=== PATIENT | male | born 1975 | race African-American/Black ===

== ENCOUNTER 2016-04-22 16:47 | Emergency (ER) | payer OTHER ==
--- NOTE | 2016-04-22 17:13 | ER Document Report ---
ED Medical Screen (RME) - General Chief Complaint: High Blood Sugar Stated Complaint: THIRSTY,BODY CRAMPING,FREQUENT URINATION Time seen by provider: 17:11 Mode of Arrival: Ambulatory Information source: Patient Notes: 40-year-old male presents to ED for increased thirst urination and body aches for the last 4 days. He states he was sent over here from the [facility] because his blood sugar was 437 at his doctor's appointment. States he did not previously have a diagnosis of diabetes. History of high blood pressure not all medicines for his blood pressure. I have greeted and performed a rapid initial assessment of this patient. A comprehensive ED assessment and evaluation of the patient, analysis of test results and completion of medical decision making process will be conducted by an additional ED providers. TRAVEL OUTSIDE OF THE [place] IN LAST 30 DAYS: No - Related Data Allergies/Adverse Reactions: No Known Allergies Allergy (Unverified 06/07/14 03:07) Physical Exam - Vital signs Vitals: Temp Pulse Resp BP Pulse Ox 97.6 F 107 H 18 153/101 H 93 04/22/16 17:05 04/22/16 17:05 04/22/16 17:05 04/22/16 17:05 04/22/16 17:05 Course - Vital Signs Vital signs: Temp Pulse Resp BP Pulse Ox 97.6 F 107 H 18 153/101 H 93 04/22/16 17:05 04/22/16 17:05 04/22/16 17:05 04/22/16 17:05 04/22/16 17:05
[2016-04-22 17:38] LABS: ABSOLUTE LYMPHOCYTES (AUTO) 2.9 10^3/uL (0.5-4.7); ABSOLUTE MONOCYTES (AUTO) 0.6 10^3/uL (0.1-1.4); ABSOLUTE NEUT (AUTO) 3.5 10^3/uL (1.7-8.2); BASOPHILS % (AUTO) 0.5 % (0-2); HEMATOCRIT 51.8 % (37.9-51.0); HEMOGLOBIN 17.6 g/dL (13.5-17.0); LYMPHOCYTES % (AUTO) 40.9 % (13-45); MEAN CORPUSCULAR HEMOGLOBIN 29.8 pg (27.0-33.4); MEAN CORPUSCULAR HGB CONC 33.9 g/dL (32.0-36.0); MEAN CORPUSCULAR VOLUME 88 fl (80-97); MONOCYTES % (AUTO) 8.1 % (3-13); RED CELL DISTRIBUTION WIDTH 13.6 % (11.5-14.0); SEGMENTED NEUTROPHILS % (AUTO) 50.5 % (42-78)
[2016-04-22 17:52] LABS: ALANINE AMINOTRANSFERASE 56 U/L (21-72); ALBUMIN 4.5 g/dL (3.5-5.0); ALKALINE PHOSPHATASE 102 U/L (38-126); ANION GAP 14 (5-19); ASPARTATE AMINO TRANSFERASE 35 U/L (17-59); BILIRUBIN,TOTAL 0.8 mg/dL (0.2-1.3); BLOOD UREA NITROGEN 13 mg/dL (7-20); CALCIUM 10.5 mg/dL (8.4-10.2); CARBON DIOXIDE 28 mmol/L (22-30); CHLORIDE 95 mmol/L (98-107); CREATININE RESULT 1.27 mg/dL (0.52-1.25); LIPASE 244.6 U/L (23-300); POTASSIUM 4.3 mmol/L (3.6-5.0); SODIUM 137.4 mmol/L (137-145); TOTAL PROTEIN 7.6 g/dL (6.3-8.2)
[2016-04-22 17:54] LABS: APPEARANCE,URINE CLEAR; BILIRUBIN,URINE NEGATIVE (NEGATIVE); GLUCOSE, URINE >=500 mg/dL (NEGATIVE); KETONES,URINE NEGATIVE (NEGATIVE); LEUKOCYTE ESTERASE,URINE NEGATIVE (NEGATIVE); NITRITE,URINE NEGATIVE (NEGATIVE); PROTEIN,URINE NEGATIVE (NEGATIVE); URINE SPECIFIC GRAVITY 1.038; UROBILINOGEN,URINE NEGATIVE mg/dL (<2.0)
[2016-04-22 18:06] LABS: GLUCOSE 494 mg/dL (75-110)
[2016-04-22] MEDS ORDERED: NORMAL SALINE 1000 ML 1,000 ML IV ONE (18:53)
--- NOTE | 2016-04-22 19:10 | ER Document Report ---
ED Blood Sugar Problem - General Mode of Arrival: Ambulatory Information source: Patient TRAVEL OUTSIDE OF THE [place] IN LAST 30 DAYS: No - HPI Patient complains to provider of: Hyperglycemia Onset: Other - 3 days ago Associated symptoms: Other - see above <ANGEL RONQUILLO - Last Filed: 04/22/16 21:21> <ELISEISABEL TIMA - Last Filed: 04/23/16 03:14> - General Chief Complaint: High Blood Sugar Stated Complaint: THIRSTY,BODY CRAMPING,FREQUENT URINATION Notes: 40 year old male with history of pre-diabetes presents to the ED complaining of increased urinary frequency and cramping to the bilateral upper and lower extremities that started 3 days ago. Patient states that his urination is becoming more frequent and claims that he is urinating every 2-3 minutes. Patient denies any burning with urination. [facility] and was advised to come to the ED after having a blood sugar of 437. (ANGEL RONQUILLO) - Related Data Allergies/Adverse Reactions: No Known Allergies Allergy (Verified 04/22/16 17:12) Past Medical History - General Information source: Patient - Social History Smoking Status: Former Smoker Chew tobacco use (# tins/day): No Frequency of alcohol use: None Drug Abuse: None Family History: Hypertension Patient has suicidal ideation: No Patient has homicidal ideation: No Endocrine Medical History: Reports: Other - Pre-diabetes <ANGEL RONQUILLO - Last Filed: 04/22/16 21:21> Review of Systems - Review of Systems Constitutional: No symptoms reported EENT: No symptoms reported Cardiovascular: No symptoms reported Respiratory: No symptoms reported Gastrointestinal: No symptoms reported Genitourinary: See HPI, Frequency. denies: Burning Male Genitourinary: No symptoms reported Musculoskeletal: See HPI, Other - cramping to the bilateral upper and lower extremities Skin: No symptoms reported Hematologic/Lymphatic: No symptoms reported Neurological/Psychological: No symptoms reported -: Yes All other systems reviewed and negative <ANGEL RONQUILLO - Last Filed: 04/22/16 21:21> Physical Exam - General General appearance: Alert In distress: None - HEENT Head: Normocephalic, Atraumatic Eyes: Normal Extraocular movements intact: Yes Pupils: PERRL Mucous membranes: Dry - Respiratory Respiratory status: No respiratory distress Breath sounds: Normal - Cardiovascular Rhythm: Regular Heart sounds: Normal auscultation - Abdominal Inspection: Obese. No: Normal - Back Back: Normal - Extremities General upper extremity: Normal inspection, Normal ROM General lower extremity: Normal inspection, Normal ROM - Neurological Neuro grossly intact: Yes Cognition: Normal Orientation: AAOx4 [place] Coma Scale Eye Opening: Spontaneous [place] Coma Scale Verbal: Oriented [place] Coma Scale Motor: Obeys Commands [place] Coma Scale Total: 15 Speech: Normal - Psychological Associated symptoms: Normal affect, Normal mood - Skin Skin Temperature: Warm Skin Moisture: Dry Skin Color: Normal <ANGEL RONQUILLO - Last Filed: 04/22/16 21:21> Course - Laboratory Result Diagrams: 04/22/16 17:20 04/22/16 17:20 <ANGEL RONQUILLO - Last Filed: 04/22/16 21:21> - Laboratory Result Diagrams: 04/22/16 17:20 04/22/16 17:20 <ISABEL OLIVARES - Last Filed: 04/23/16 03:14> - Re-evaluation Re-evalutation: 04/22/16 Patient is a 40-year-old male who has had recent increase in thirst and urination. Patient had an outpatient blood sugar over 400. Patient has a follow-up appointment in the morning with the [facility]. He'll be started on metformin. He has been hydrated. He's been counseled regarding carbohydrate counting and management of diabetes. Return if any worsening or concerning symptoms. No evidence for acidosis. Stable for discharge. (ISABEL OLIVARES) - Vital Signs Vital signs: Temp Pulse Resp BP Pulse Ox 97.4 F 84 16 142/86 H 97 04/22/16 20:45 04/22/16 20:45 04/22/16 20:45 04/22/16 20:45 04/22/16 20:45 (ANGEL RONQUILLO) (ISABEL OLIVARES) - Laboratory Laboratory results interpreted by mt: 04/22/16 04/22/16 04/22/16 17:20 17:20 17:20 RBC 5.90 H Hgb 17.6 H Hct 51.8 H Chloride 95 L Creatinine 1.27 H Glucose 494 H* POC Glucose Calcium 10.5 H Urine Glucose (UA) >=500 H 04/22/16 04/22/16 17:25 19:32 RBC Hgb Hct Chloride Creatinine Glucose POC Glucose 482 H* 361 H Calcium Urine Glucose (UA) (ANGEL RONQUILLO) (ISABEL OLIVARES) Discharge <ANGEL RONQUILLO - Last Filed: 04/22/16 21:21> <ISABEL OLIVARES - Last Filed: 04/23/16 03:14> - Discharge Clinical Impression: Hyperglycemia Type 2 diabetes mellitus Qualifiers: Diabetes mellitus complication status: with hyperglycemia Diabetes mellitus jail insulin use: without truck terminal manager use Qualified Code(s): E11.65 - Type 2 diabetes mellitus with hyperglycemia Condition: Stable Disposition: HOME, SELF-CARE Instructions: Diabetes ([facility]), Control of Diabetes During Illness ([facility]), Hyperglycemia ([facility]) Additional Instructions: Please follow-up with your doctor tomorrow as scheduled. Prescriptions: Metformin HCl 500 mg PO BID #60 tablet Forms: Return to Work Scribe Attestation: 04/23/16 03:13 I personally performed the services described in the documentation, reviewed and edited the documentation which was dictated to the scribe in my presence, and it accurately records my words and actions. (ISABEL OLIVARES) Scribe Documentation - Scribe Written by Zechariah:: Zechariah Oliveira, 04/22/2016, 19:57 acting as scribe for :: Elise <ANGEL RONQUILLO - Last Filed: 04/22/16 21:21>
[2016-04-22] MEDS ORDERED: INSULIN REG, HUMAN 100 UNIT/ML 3 ML VIAL (PYX) IV ONE (19:43)
[2016-04-22] MEDS ORDERED: METFORMIN HCL 500 MG TABLET PO ONE (20:24)
[2016-04-22 20:51] VITALS: BP 142/86
== END 2016-04-22 20:52 | disposition home or self-care (01) ==
LOC: ER 16:47
DX: E11.65 Type 2 diabetes mellitus with hyperglycemia (principal); R73.9 Hyperglycemia, unspecified; R63.1 Polydipsia; R52 Pain, unspecified; R35.0 Frequency of micturition; Z87.891 Personal history of nicotine dependence
CPT/HCPCS: 99283; 96360; 36415; 82962; 83690; 85025; 80053; 81001; J1815; J7030

== ENCOUNTER 2016-09-02 19:32 | Emergency (ER) | payer OTHER ==
[2016-09-02 20:39] LABS: APPEARANCE,URINE CLEAR; BILIRUBIN,URINE NEGATIVE (NEGATIVE); GLUCOSE, URINE >=500 mg/dL (NEGATIVE); KETONES,URINE TRACE mg/dL (NEGATIVE); LEUKOCYTE ESTERASE,URINE NEGATIVE (NEGATIVE); NITRITE,URINE NEGATIVE (NEGATIVE); PROTEIN,URINE NEGATIVE (NEGATIVE); URINE SPECIFIC GRAVITY 1.028; UROBILINOGEN,URINE NEGATIVE mg/dL (<2.0)
[2016-09-02 21:54] LABS: ABSOLUTE BASOPHILS # (AUTO) 0.1 10^3/uL (0.0-0.2); ABSOLUTE LYMPHOCYTES (AUTO) 3.2 10^3/uL (0.5-4.7); ABSOLUTE MONOCYTES (AUTO) 0.5 10^3/uL (0.1-1.4); BASOPHILS % (AUTO) 1.3 % (0-2); HEMATOCRIT 52.6 % (37.9-51.0); HEMOGLOBIN 17.4 g/dL (13.5-17.0); HGB HCT DIFFERENCE -0.4; LYMPHOCYTES % (AUTO) 47.2 % (13-45); MEAN CORPUSCULAR HEMOGLOBIN 29.2 pg (27.0-33.4); MEAN CORPUSCULAR HGB CONC 33.2 g/dL (32.0-36.0); MEAN CORPUSCULAR VOLUME 88 fl (80-97); MONOCYTES % (AUTO) 7.5 % (3-13); RED BLOOD COUNT 5.97 10^6/uL (4.35-5.55); RED CELL DISTRIBUTION WIDTH 14.7 % (11.5-14.0); WHITE BLOOD COUNT 6.9 10^3/uL (4.0-10.5)
[2016-09-02] MEDS ORDERED: NORMAL SALINE 1000 ML 2,000 ML IV ONE (23:49)
--- NOTE | 2016-09-03 00:01 | ER Document Report ---
ED GI/ - General Chief Complaint: Abdominal Pain Stated Complaint: ABDOMINAL PAIN Time Seen by Provider: 09/02/16 23:49 Mode of Arrival: Ambulatory Information source: Patient Notes: 40-year-old male complaining of bulging from his umbilicus and abdominal pain. No nausea vomiting or diarrhea. No fever or chills. TRAVEL OUTSIDE OF THE [place] IN LAST 30 DAYS: No - Related Data Allergies/Adverse Reactions: No Known Allergies Allergy (Verified 04/22/16 17:12) Past Medical History - General Information source: Patient - Social History Smoking Status: Never Smoker Frequency of alcohol use: None Drug Abuse: None Lives with: Family Family History: Hypertension Patient has suicidal ideation: No Patient has homicidal ideation: No Endocrine Medical History: Reports: Hx Diabetes Mellitus Type 2 Renal/ Medical History: Denies: Hx Peritoneal Dialysis Surgical Hx: Negative Review of Systems - Review of Systems Constitutional: No symptoms reported EENT: No symptoms reported Cardiovascular: No symptoms reported Respiratory: No symptoms reported Gastrointestinal: See HPI Genitourinary: No symptoms reported Male Genitourinary: No symptoms reported Musculoskeletal: No symptoms reported Skin: No symptoms reported Hematologic/Lymphatic: No symptoms reported Neurological/Psychological: No symptoms reported Physical Exam - Vital signs Vitals: Temp Pulse Resp BP Pulse Ox 98.1 F 92 16 135/87 H 97 09/02/16 20:05 09/02/16 20:05 09/02/16 20:05 09/02/16 20:05 09/02/16 20:05 Interpretation: Normal - General General appearance: Appears well, Alert - HEENT Head: Normocephalic, Atraumatic Eyes: Normal Pupils: PERRL Neck: Supple - Respiratory Respiratory status: No respiratory distress Chest status: Nontender Breath sounds: Normal Chest palpation: Normal - Cardiovascular Rhythm: Regular Heart sounds: Normal auscultation Murmur: No - Abdominal Inspection: Normal Distension: No distension Bowel sounds: Normal Tenderness: Tender - Superior right umbilicus hernia was reduced with gentle pressure. Nontender after reduction Organomegaly: No organomegaly - Back Back: Normal, Nontender - Extremities General upper extremity: Normal inspection, Nontender, Normal color, Normal ROM , Normal temperature General lower extremity: Normal inspection, Nontender, Normal color, Normal ROM , Normal temperature, Normal weight bearing. No: Ranjith's sign - Neurological Neuro grossly intact: Yes Cognition: Normal Orientation: AAOx4 [place] Coma Scale Eye Opening: Spontaneous [place] Coma Scale Verbal: Oriented [place] Coma Scale Motor: Obeys Commands [place] Coma Scale Total: 15 Speech: Normal Motor strength normal: LUE, RUE, LLE, RLE Sensory: Normal - Psychological Associated symptoms: Normal affect, Normal mood - Skin Skin Temperature: Warm Skin Moisture: Dry Skin Color: Normal Skin irregularity: negative: Rash Course - Vital Signs Vital signs: Temp Pulse Resp BP Pulse Ox 98.4 F 81 16 133/80 H 98 09/03/16 00:37 09/03/16 00:37 09/03/16 00:37 09/03/16 00:37 09/03/16 00:37 - Laboratory Result Diagrams: 09/02/16 21:40 09/02/16 21:40 Laboratory results interpreted by me: 09/02/16 09/02/16 09/03/16 20:02 21:40 00:11 RBC 5.97 H Hgb 17.4 H Hct 52.6 H RDW 14.7 H Lymphocytes % 47.2 H POC Glucose 140 H Urine Glucose (UA) >=500 H Urine Ketones TRACE H Urine Ascorbic Acid 40 H Discharge - Discharge Clinical Impression: reducible umbilical hernia Condition: Good Disposition: HOME, SELF-CARE Instructions: Umbilical Hernia ([facility]) Additional Instructions: génesis appt with the general surgeon for unbllical hernia repair return to ER if you are unble to push it back in as instructed no heavy lifting or bearing down which causes the hernia to protrude more. Referrals: DINORA STEWART MD [ACTIVE STAFF] - Follow up tomorrow
[2016-09-03 00:40] VITALS: BP 133/80
== END 2016-09-03 00:37 | disposition home or self-care (01) ==
LOC: ER 19:32
DX: K42.9 Umbilical hernia without obstruction or gangrene (principal); R10.9 Unspecified abdominal pain
CPT/HCPCS: 36415; 81001; 82962; 85025; 99284

== ENCOUNTER 2019-10-22 01:48 | Emergency (ER) | payer OTHER ==
[2019-10-22] MEDS ORDERED: OXYCODONE-ACETAMINOPHEN 5-325 MG TABLET PO ONE (03:05)
[2019-10-22] MEDS ORDERED: ONDANSETRON 4 MG TAB.RAPDIS PO ONE (03:05)
--- NOTE | 2019-10-22 03:08 | ER Document Report ---
ED Medical Screen (RME) - General Chief Complaint: Abscess Stated Complaint: ABCESS ON LEFT GROIN AREA Time Seen by Provider: 10/22/19 03:04 Notes: 44-year-old male chief complaint of swelling to the left inner thigh that now extends to the groin into the scrotum on the left side. He states initially the area started getting tender and swollen, he thinks it was an ingrown hair, he does shave the area. This started about 4 days ago, he was seen the next day after he tried to poke this with a needle and had a small amount of drainage. He was seen by primary care and placed on Bactrim which he has been taking. He denies fever. He does have type 2 diabetes. TRAVEL OUTSIDE OF THE [place] IN LAST 30 DAYS: No - Related Data Allergies/Adverse Reactions: No Known Allergies Allergy (Verified 04/22/16 17:12) Home Medications: bactrim ds bid x3 doses. lantus insulin 40 units Past Medical History Endocrine Medical History: Reports: Hx Diabetes Mellitus Type 2 Renal/ Medical History: Denies: Hx Peritoneal Dialysis Physical Exam - Vital signs Vitals: Temp Pulse Resp BP Pulse Ox 97.9 F 100 16 143/90 H 99 10/22/19 02:17 10/22/19 02:10/22/19 02:10/22/19 02:17 10/22/19 02:17 - Genitourinary Scrotum: Other - Erythema and tenderness with some swelling extending from the left medial thigh to the inguinal area and also slightly to the scrotum area. No obvious head or fluctuant area is noted however. Exam is limited by triage location. Talisha ASCENCIO present in room during exam. Course - Re-evaluation Re-evalutation: I have greeted and performed a rapid initial assessment of this patient. A comprehensive ED assessment and evaluation of the patient, analysis of test results and completion of the medical decision making process will be conducted by additional ED providers. - Vital Signs Vital signs: Temp Pulse Resp BP Pulse Ox 97.9 F 100 16 143/90 H 99 10/22/19 02:17 10/22/19 02:17 10/22/19 02:17 10/22/19 02:17 10/22/19 02:17
[2019-10-22] MEDS ORDERED: NORMAL SALINE 1000 ML 1,000 ML IV ONE (04:16)
[2019-10-22] MEDS ORDERED: HYDROMORPHONE HCL INJ/PF 2 MG/ML AMPULE IV ONE (04:16)
[2019-10-22 04:34] LABS: ABSOLUTE LYMPHOCYTES (AUTO) 1.8 10^3/uL (0.5-4.7); BASOPHILS % (AUTO) 0.2 % (0-2); HEMATOCRIT 47.8 % (37.9-51.0); HEMOGLOBIN 16.5 g/dL (13.5-17.0); LYMPHOCYTES % (AUTO) 17.8 % (13-45); MEAN CORPUSCULAR HEMOGLOBIN 29.6 pg (27.0-33.4); MEAN CORPUSCULAR HGB CONC 34.5 g/dL (32.0-36.0); MEAN CORPUSCULAR VOLUME 86 fl (80-97); MONOCYTES % (AUTO) 10.2 % (3-13); PLATELET COUNT 144 10^3/uL (150-450); RED BLOOD COUNT 5.57 10^6/uL (4.35-5.55); RED CELL DISTRIBUTION WIDTH 14.5 % (11.5-14.0); SEGMENTED NEUTROPHILS % (AUTO) 71.8 % (42-78); TOTAL CELLS COUNTED % (AUTO) 100 %; WHITE BLOOD COUNT 9.8 10^3/uL (4.0-10.5)
--- NOTE | 2019-10-22 04:36 | RADIOLOGY REPORT (SQ) ---
EXAM DESCRIPTION: US SCROTUM COMPLETED DATE/TME: 10/22/2019 03:04 CLINICAL HISTORY: 44 years, Male, left inner thigh and scrotal swelling COMPARISON: 06/06/2014 ultrasound TECHNIQUE: Transverse and longitudinal sonographic images of the testes LIMITATIONS: None. FINDINGS: The right testicle measures 4.4 x 2.1 x 3.2 cm, the left 4.3 x 2.2 x 3.5 cm. Negative for intratesticular mass. Doppler images show normal flow to each testicle. The epididymides are unremarkable. There is diffuse skin thickening of the scrotum. No abnormal fluid collections. IMPRESSION: No sonographic evidence for torsion. Diffuse scrotal skin thickening copyright 2010 [employer]- All Rights Reserved
[2019-10-22] MEDS ORDERED: CLINDAMYCIN 900 MG/D5W RTU 900 MG/50 ML RTUPB IV ONE (04:39)
[2019-10-22 04:55] LABS: ANION GAP 7 (5-19); BLOOD UREA NITROGEN 11 mg/dL (7-20); CALCIUM 8.9 mg/dL (8.4-10.2); CARBON DIOXIDE 25 mmol/L (22-30); CHLORIDE 100 mmol/L (98-107); POTASSIUM 3.9 mmol/L (3.6-5.0)
[2019-10-22 05:08] LABS: GLUCOSE 486 mg/dL (75-110)
[2019-10-22] MEDS ORDERED: INSULIN REG, HUMAN 100 UNIT/ML 3 ML VIAL (PYX) IV ONE (05:35)
--- NOTE | 2019-10-22 05:54 | ER Document Report ---
Entered by JEF BLANK SCRIBE 10/22/19 0402 Acting as scribe for:KAIT PISANO IV, MD ED General - General Chief Complaint: Abscess Stated Complaint: ABCESS ON LEFT GROIN AREA Time Seen by Provider: 10/22/19 03:04 Primary Care Provider: RAMOS,MARKY [Primary Care Provider] - Follow up as needed Mode of Arrival: Wheelchair Information source: Patient Notes: This 44 year old male patient presents to the ED today with complaints of pain and an area of swelling to his left inner thigh that started about x4 days ago. Patient states that he thought the area was due to an ingrown hair, so he poked the area with a needle and noted some drainage. He saw his PCP the day after onset and was placed on Bactrim which he has been taking. He states that now the swelling has extended to his groin and scrotum on the left side. Denies any fevers. TRAVEL OUTSIDE OF THE [place] IN LAST 30 DAYS: No - Related Data Allergies/Adverse Reactions: No Known Allergies Allergy (Verified 04/22/16 17:12) Home Medications: bactrim ds bid x3 doses. lantus insulin 40 units Past Medical History - General Information source: Patient - Social History Smoking Status: Current Every Day Smoker Cigarette use (# per day): Yes Chew tobacco use (# tins/day): No Smoking Education Provided: No Family History: Reviewed & Not Pertinent, Hypertension Patient has suicidal ideation: No Patient has homicidal ideation: No Endocrine Medical History: Reports: Hx Diabetes Mellitus Type 2 Review of Systems - Review of Systems Constitutional: See HPI. denies: Fever EENT: No symptoms reported Cardiovascular: No symptoms reported Respiratory: No symptoms reported Gastrointestinal: No symptoms reported Genitourinary: No symptoms reported Male Genitourinary: See HPI Musculoskeletal: No symptoms reported Skin: See HPI Hematologic/Lymphatic: No symptoms reported Neurological/Psychological: No symptoms reported -: Yes All other systems reviewed and negative Physical Exam - Vital signs Vitals: Temp Pulse Resp BP Pulse Ox 97.9 F 100 16 143/90 H 99 10/22/19 02:17 10/22/19 02:17 10/22/19 02:17 10/22/19 02:17 10/22/19 02:17 - General General appearance: Alert In distress: None - HEENT Head: Normocephalic, Atraumatic Eyes: Normal Pupils: PERRL - Respiratory Respiratory status: No respiratory distress Chest status: Nontender Breath sounds: Normal Chest palpation: Normal - Cardiovascular Rhythm: Regular Heart sounds: Normal auscultation Murmur: No Friction rub: No Gallop: None auscultated - Abdominal Inspection: Normal Distension: No distension Bowel sounds: Normal Tenderness: Nontender - Abdomen soft Organomegaly: No organomegaly - Genitourinary Scrotum: Swelling - Significant soft tissue swelling, edema, and erythema noted to left scrotum, Other - Pinpoint area of purulent drainage noted in the center of swelling of the left scrotum Notes: Scada Engineer present - Extremities General upper extremity: Normal inspection - Neurological Neuro grossly intact: Yes Orientation: AAOx4 [place] Coma Scale Eye Opening: Spontaneous [place] Coma Scale Verbal: Oriented [place] Coma Scale Motor: Obeys Commands [place] Coma Scale Total: 15 - Psychological Associated symptoms: Normal affect, Normal mood - Skin Skin irregularity: Tender indurated area - with erythema noted to proximal and medial surface of left thigh Course - Re-evaluation Re-evalutation: 10/22/19 05:57 Results of ED MSE discussed with patient. All questions were answered prior to discharge. Emergency signs and symptoms, reasons to return to the emergency department discussed with patient. - Vital Signs Vital signs: Temp Pulse Resp BP Pulse Ox 97.9 F 100 16 143/90 H 99 10/22/19 02:17 10/22/19 02:17 10/22/19 02:17 10/22/19 02:17 10/22/19 02:17 - Laboratory Result Diagrams: 10/22/19 04:16 10/22/19 04:16 Laboratory results interpreted by me: 10/22/19 10/22/19 04:16 04:16 RBC 5.57 H RDW 14.5 H Plt Count 144 L Sodium 132.1 L Glucose 486 H* - Diagnostic Test Radiology reviewed: Reports reviewed Discharge - Discharge Clinical Impression: Cellulitis Qualifiers: Site of cellulitis: unspecified site Qualified Code(s): L03.90 - Cellulitis, unspecified Condition: Stable Disposition: HOME, SELF-CARE Additional Instructions: Return to the Emergency Department without delay if any worse. HOME CARE INSTRUCTIONS & INFORMATION: Thank you for choosing us for your medical needs. We hope you're satisfied with the care you received. After you leave, you must properly care for your problem and, at the same time, observe its progress. Any condition can change. Some illnesses can change rapidly over hours or days. If your condition worsens, return to the Emergency Department or see your physician promptly. ABOUT YOUR X-RAYS AND EKG'S: If you had an EKG or X-rays taken, they have been read by the Emergency Physician. The X-rays and EKG's will also be read by a Radiologist or Semi Automatic Sewing Machine Operator within 24 hours. If discrepancies are noted, you will be notified by telephone. Please be certain the ED has a correct telephone number & address where you can be reached. Also, realize that some fractures or abnormalities do not show up on initial X-rays. If your symptoms continue, see your physician. ABOUT YOUR LABORATORY TEST: If you had laboratory tests, the results have been reviewed by the Emergency Physician. Some test results (for example cultures) may not be available for several days. You will be contacted if any test result shows you need additional treatment. Please be certain the ED has a correct [employer] number and address where you can be reached. ABOUT YOUR MEDICATIONS: You will receive instructions on how to take your medicine on the prescription label you receive. Additional information may be provided by the Pharmacy. If you have questions afterwards, call the ED for clarification or further instructions. Some prescribed medications may cause drowsiness. Do not perform tasks such as driving a car or operating machinery without consulting your Pharmacist. If you feel you need a refill of pain medication, your condition will need re-evaluation. Please do not call for a refill of any medication. ABOUT YOUR SIGNATURE: Signature of this document acknowledges to followin. Understanding that you received emergency treatment and that you may be released before al medical problems are known or treated. Please be certain the ED has a correct phone number & address where you can be reached. 2. Acknowledgement that you will arrange for follow-up care as recommended. 3. Authorization for the Emergency Physician to provide information to your follow-up Physician in order to maximize your care. AT ANY TIME, IF YOUR SYMPTOMS CHANGE SIGNIFICANTLY OR WORSEN OR YOU DEVELOP NEW SYMPTOMS, RETURN TO THE EMERGENCY DEPARTMENT IMMEDIATELY FOR RE-EVALUATION. OUR GOAL IS TO PROVIDE EXCELLENT MEDICAL CARE! WE HOPE THAT WE HAVE MET YOUR EXPECTATIONS DURING YOUR EMERGENCY DEPARTMENT VISIT AND THAT YOU FEEL YOU HAVE RECEIVED EXCELLENT CARE! Cellulitis You have an infection of your skin and underlying soft tissues called cellulitis. This is due to bacteria, which can enter through any break in the skin, or even through an irritated hair follicle. Untreated, cellulitis will usually worsen. Antibiotics are required. Usually, warm packs or warm soaks, and elevation of the infected area are recommended. You should start getting better within 24 to 36 hours. Most infections respond quickly to the right medication. Follow-up care is important, however, to check for abscess (boil) formation, unsuspected foreign body, or resistant infection. If you develop fever, chills, or if the area of infection is becoming rapidly more swollen or painful, call the doctor at once. Prescriptions: Oxycodone HCl/Acetaminophen [Percocet 5-325 mg Tablet] 1 tab PO Q6HP PRN #15 tablet PRN Reason: pain Clindamycin HCl [Cleocin 150 mg Capsule] 450 mg PO TID 10 Days #90 capsule Clindamycin HCl [Cleocin 150 mg Capsule] 450 mg PO TID 10 Days #90 [facility]errals: [facility] [Primary [facility]] - Follow up as needed I personally performed the services described in the documentation, reviewed and edited the documentation which was dictated to the scribe in my presence, and it accurately records my words and actions.
[2019-10-22] MEDS ORDERED: HYDROCODONE/ACETAMINOPHEN 5-325 MG (6 TAB/ER DISP) PO PRN (05:56)
[2019-10-22 06:15] VITALS: BP 123/76
== END 2019-10-22 06:16 | disposition home or self-care (01) ==
LOC: ER 01:48
DX: L02.214 Cutaneous abscess of groin (principal); L03.90 Cellulitis, unspecified; F17.210 Nicotine dependence, cigarettes, uncomplicated; E11.9 Type 2 diabetes mellitus without complications
CPT/HCPCS: 99283; 96361; 96375; 96365; 36415; 87040; 87070; 87205; 85025; 87075; 80048; 76870; 93976; S0119; J3490; J1170; J1815; J7030; 87077

== ENCOUNTER 2019-10-23 23:49 | Emergency (ER) | payer OTHER ==
[2019-10-24] MEDS ORDERED: NORMAL SALINE 1000 ML 1,000 ML IV ONE ×2 (00:32→01:49)
--- NOTE | 2019-10-24 00:32 | ER Document Report ---
ED Medical Screen (RME) - General Chief Complaint: Testicular Swelling Stated Complaint: ABSCESS IN GROIN/TESTICULAR SWELLING Time Seen by Provider: 10/24/19 00:25 Primary Care Provider: MARKY BEASLEY [Primary Care Provider] - Follow up as needed Notes: HPI: 44-year-old type II diabetic male presenting for worsening left groin swelling. Patient states for 5 days ago he developed tenderness and swelling in the left groin region adjacent to the scrotum went to [facility] and was placed on Bactrim. Took the antibiotics for 2 days did not get any better came into the emergency department 2 days ago for further evaluation. States he had an ultrasound that did not show any significant issues, was placed on clindamycin but did not have the area in the left groin drained. States he has been trying to drain it at home without success. Patient reports increased pain and swelling in the left groin region PHYSICAL EXAMINATION: Limited exam in triage but circumcised male, bilateral testicles are descended, slight increase in size in the left testicle relative to the right. There is a thickened indurated region at the base of the scrotum in the left groin and perineum with small opening with some purulent discharge I have greeted and performed a rapid initial assessment of this patient. A comprehensive ED assessment and evaluation of the patient, analysis of test results and completion of medical decision making process will be conducted by an additional ED providers. TRAVEL OUTSIDE OF THE [place] IN LAST 30 DAYS: No - Related Data Allergies/Adverse Reactions: No Known Allergies Allergy (Verified 04/22/16 17:12) Past Medical History Endocrine Medical History: Reports: Hx Diabetes Mellitus Type 2 Renal/ Medical History: Denies: Hx Peritoneal Dialysis Physical Exam - Vital signs Vitals: Temp Pulse Resp BP Pulse Ox 98.7 F 114 H 20 149/85 H 96 10/23/19 23:54 10/23/19 23:54 10/23/19 23:54 10/23/19 23:54 10/23/19 23:54 Course - Vital Signs Vital signs: Temp Pulse Resp BP Pulse Ox 98.7 F 114 H 20 149/85 H 96 10/23/19 23:54 10/23/19 23:54 10/23/19 23:54 10/23/19 23:54 10/23/19 23:54 Doctor's Discharge - Discharge Referrals: [facility] [Primary [facility]] - Follow up as needed
[2019-10-24 01:07] LABS: ABSOLUTE BASOPHILS # (AUTO) 0.1 10^3/uL (0.0-0.2); ABSOLUTE LYMPHOCYTES (AUTO) 1.9 10^3/uL (0.5-4.7); ABSOLUTE MONOCYTES (AUTO) 0.8 10^3/uL (0.1-1.4); ABSOLUTE NEUT (AUTO) 5.2 10^3/uL (1.7-8.2); BASOPHILS % (AUTO) 0.7 % (0-2); HEMATOCRIT 46.8 % (37.9-51.0); HEMOGLOBIN 16.1 g/dL (13.5-17.0); LYMPHOCYTES % (AUTO) 23.8 % (13-45); MEAN CORPUSCULAR HEMOGLOBIN 29.1 pg (27.0-33.4); MEAN CORPUSCULAR HGB CONC 34.5 g/dL (32.0-36.0); MEAN CORPUSCULAR VOLUME 84 fl (80-97); MONOCYTES % (AUTO) 9.5 % (3-13); PLATELET COUNT 205 10^3/uL (150-450); RED BLOOD COUNT 5.55 10^6/uL (4.35-5.55); RED CELL DISTRIBUTION WIDTH 14.1 % (11.5-14.0); TOTAL CELLS COUNTED % (AUTO) 100 %; WHITE BLOOD COUNT 7.9 10^3/uL (4.0-10.5)
[2019-10-24 01:24] LABS: ALBUMIN 3.7 g/dL (3.5-5.0); ALKALINE PHOSPHATASE 88 U/L (38-126); ANION GAP 5 (5-19); ASPARTATE AMINO TRANSFERASE 25 U/L (17-59); BILIRUBIN,DIRECT 0.2 mg/dL (0.0-0.4); BILIRUBIN,TOTAL 0.7 mg/dL (0.2-1.3); BLOOD UREA NITROGEN 10 mg/dL (7-20); CALCIUM 9.2 mg/dL (8.4-10.2); CARBON DIOXIDE 24 mmol/L (22-30); CHLORIDE 104 mmol/L (98-107); GLUCOSE 307 mg/dL (75-110); POTASSIUM 4.2 mmol/L (3.6-5.0)
[2019-10-24] MEDS ORDERED: HYDROMORPHONE HCL INJ/PF 2 MG/ML AMPULE IV ONE ×2 (01:50→04:07)
[2019-10-24] MEDS ORDERED: ONDANSETRON HCL INJ/PF 4 MG/2 ML SDV IV ONE (01:50)
--- NOTE | 2019-10-24 02:35 | ER Document Report ---
Entered by JEF BLANK SCRIBE 10/24/19 0152 Acting as scribe for:KAIT PISANO IV, MD ED General - General Chief Complaint: Abscess Stated Complaint: ABSCESS IN GROIN/TESTICULAR SWELLING Time Seen by Provider: 10/24/19 00:25 Primary Care Provider: RAMOS,MARKY [Primary Care Provider] - Follow up as needed Mode of Arrival: Ambulatory Information source: Patient Notes: This 44 year old male patient presents to the ED today with complaints of worsening pain and swelling to his groin and left scrotum that initially began about x6 days ago. Patient was seen here yesterday with the same complaint and had a scrotum U/S that was unremarkable. He was diagnosed with cellulitis and placed on Clindamycin and [place]. TRAVEL OUTSIDE OF THE [place] IN LAST 30 DAYS: No - Related Data Allergies/Adverse Reactions: No Known Allergies Allergy (Verified 04/22/16 17:12) Home Medications: Insulin Past Medical History - General Information source: Patient - Social History Smoking Status: Current Some Day Smoker Cigarette use (# per day): Yes Chew tobacco use (# tins/day): No Smoking Education Provided: No Frequency of alcohol use: None Drug Abuse: None Family History: Reviewed & Not Pertinent, Hypertension Patient has suicidal ideation: No Patient has homicidal ideation: No Endocrine Medical History: Reports: Hx Diabetes Mellitus Type 2 Review of Systems - Review of Systems Constitutional: No symptoms reported EENT: No symptoms reported Cardiovascular: No symptoms reported Respiratory: No symptoms reported Gastrointestinal: No symptoms reported Genitourinary: No symptoms reported Male Genitourinary: See HPI Musculoskeletal: No symptoms reported Skin: No symptoms reported Hematologic/Lymphatic: No symptoms reported Neurological/Psychological: No symptoms reported -: Yes All other systems reviewed and negative Physical Exam - Vital signs Vitals: Temp Pulse Resp BP Pulse Ox 98.7 F 114 H 20 149/85 H 96 10/23/19 23:54 10/23/19 23:54 10/23/19 23:54 10/23/19 23:54 10/23/19 23:54 - General General appearance: Alert - HEENT Head: Normocephalic, Atraumatic Eyes: Normal Pupils: PERRL - Respiratory Respiratory status: No respiratory distress Chest status: Nontender Breath sounds: Normal Chest palpation: Normal - Cardiovascular Rhythm: Regular, Tachycardia Heart sounds: Normal auscultation Murmur: No Friction rub: No Gallop: None auscultated - Abdominal Inspection: Normal Distension: No distension Bowel sounds: Normal Tenderness: Nontender - Abdomen soft Organomegaly: No organomegaly - Genitourinary Scrotum: Swelling - Moderate amount of swelling and erythema noted to left scrotum which is exquisitely tender to palpation, Other - Very small amount of discharge noted from punctate area of the scrotal skin - Back Back: Normal, Nontender - Extremities General upper extremity: Normal inspection General lower extremity: Normal inspection - Neurological Neuro grossly intact: Yes Orientation: AAOx4 [place] Coma Scale Eye Opening: Spontaneous [place] Coma Scale Verbal: Oriented [place] Coma Scale Motor: Obeys Commands [place] Coma Scale Total: 15 - Psychological Associated symptoms: Normal affect, Normal mood - Skin Skin Temperature: Warm Skin Moisture: Dry Skin Color: Normal Course - Re-evaluation Re-evalutation: 10/24/19 05:08 Patient was seen by Dr. Cohen who drained his scrotal abscess that was seen on CT. Dr. Cohen recommended that the patient switch to Bactrim since the clindamycin seems to be causing the patient's stomach upset. Dr. Cohen said the patient can follow-up with him in a week. - Vital Signs Vital signs: Temp Pulse Resp BP Pulse Ox 98.7 F 114 H 20 124/88 H 97 10/23/19 23:54 10/23/19 23:54 10/23/19 23:54 10/24/19 04:03 10/24/19 04:03 - Laboratory Result Diagrams: 10/24/19 00:55 10/24/19 00:55 Laboratory results interpreted by me: 10/24/19 10/24/19 00:55 00:55 RDW 14.1 H Sodium 133.4 L Glucose 307 H - Diagnostic Test Radiology reviewed: Reports reviewed - Consults Dr. Cohen Time consulted: 03:22 - Dr. Cohen stated he would see pt in ED Reason for consultation: 10/24/19 03:22 scrotal/perineal abscess Consulted provider: will come to ER Discharge - Discharge Clinical Impression: Abscess Condition: Stable Disposition: HOME, SELF-CARE Instructions: Abscess ([facility]), Post Incision and Drainage Additional Instructions: Return to the Emergency Department without delay if any worse. HOME CARE INSTRUCTIONS & INFORMATION: Thank you for choosing us for your medical needs. We hope you're satisfied with the care you received. After you leave, you must properly care for your problem and, at the same time, observe its progress. Any condition can change. Some illnesses can change rapidly over hours or days. If your condition worsens, return to the Emergency Department or see your physician promptly. ABOUT YOUR X-RAYS AND EKG'S: If you had an EKG or X-rays taken, they have been read by the Emergency Physician. The X-rays and EKG's will also be read by a Radiologist or State Director within 24 hours. If discrepancies are noted, you will be notified by telephone. Please be certain the ED has a correct telephone number & address where you can be reached. Also, realize that some fractures or abnormalities do not show up on initial X-rays. If your symptoms continue, see your physician. ABOUT YOUR LABORATORY TEST: If you had laboratory tests, the results have been reviewed by the Emergency Physician. Some test results (for example cultures) may not be available for several days. You will be contacted if any test result shows you need additional treatment. Please be certain the ED has a correct telephone number and address where you can be reached. ABOUT YOUR MEDICATIONS: You will receive instructions on how to take your medicine on the prescription label you receive. Additional information may be provided by the Pharmacy. If you have questions afterwards, call the ED for clarification or further instructions. Some prescribed medications may cause drowsiness. Do not perform tasks such as driving a car or operating machinery without consulting your Pharmacist. If you feel you need a refill of pain medication, your condition will need re-evaluation. Please do not call for a refill of any medication. ABOUT YOUR SIGNATURE: Signature of this document acknowledges to followin. Understanding that you received emergency treatment and that you may be released before al medical problems are known or treated. Please be certain the ED has a correct phone number & address where you can be reached. 2. Acknowledgement that you will arrange for follow-up care as recommended. 3. Authorization for the Emergency Physician to provide information to your follow-up Physician in order to maximize your care. AT ANY TIME, IF YOUR SYMPTOMS CHANGE SIGNIFICANTLY OR WORSEN OR YOU DEVELOP NEW SYMPTOMS, RETURN TO THE EMERGENCY DEPARTMENT IMMEDIATELY FOR RE-EVALUATION. OUR GOAL IS TO PROVIDE EXCELLENT MEDICAL CARE! WE HOPE THAT WE HAVE MET YOUR EXPECTATIONS DURING YOUR EMERGENCY DEPARTMENT VISIT AND THAT YOU FEEL YOU HAVE RECEIVED EXCELLENT CARE! Referrals: [facility] [Primary Care Provider] - Follow up as needed LEVON COHEN MD [ACTIVE STAFF] - 10/31/19 I personally performed the services described in the documentation, reviewed and edited the documentation which was dictated to the scribe in my presence, and it accurately records my words and actions.
--- NOTE | 2019-10-24 03:13 | RADIOLOGY REPORT (SQ) ---
EXAM DESCRIPTION: CT PELVIS WITH IV CONTRAST COMPLETED DATE/TME: 10/24/2019 00:30 CLINICAL HISTORY: 44 years, Male, eval left groin abscess/perineum swelling COMPARISON: Ultrasound 10/22/2019. CT 06/07/2014 TECHNIQUE: 306 Images stored on PACS. All CT scanners at this facility use dose modulation, iterative reconstruction, and/or weight based dosing when appropriate to reduce radiation dose to as low as reasonably achievable (ALARA). [facility]: Dose Right [facility]: CareDose [facility]: Dose Right [facility]: Teradose 4D [facility]: Smart Smava LIMITATIONS: None. FINDINGS: Limited evaluation of intrapelvic structures shows a normal appendix. No free air or free fluid in the pelvis. Osseous structures of the pelvis are grossly intact. Inflammatory changes associated with the left perineum and scrotum. Ovoid fluid collection associated with the left perineum/hemiscrotum with adjacent scrotal/skin thickening, measuring approximately 6 x 2 cm. This is suspicious for peritoneal/scrotal abscess but a somewhat poorly defined. Correlate with physical exam. IMPRESSION: Left scrotal cellulitis with suspected small abscess of the left perineum extending to the left hemiscrotum. TECHNICAL DOCUMENTATION: Quality ID # 436: Final reports with documentation of one or more dose reduction techniques (e.g., Automated exposure control, adjustment of the mA and/or kV according to patient size, use of iterative reconstruction technique) copyright 2011 [employer]- All Rights Reserved
[2019-10-24] MEDS ORDERED: LIDOCAINE 1%/EPINEPHRINE INJ 20 ML VIAL INJ ONE (03:56)
--- NOTE | 2019-10-24 05:24 | PDOC CONSULTATION ---
Consultation Consult Date: 10/24/19 Provider Consulted: SURGICAL SURGICALIST Consult reason:: left groin abscess History of Present Illness Admission Date/PCP: [facility] Patient complains of: left groin pain, swelling, drainage History of Present Illness: LIZETT CORREA is a 44 year old male seen in consultation at the request of the emergency department physician. This is a patient with swelling of the left groin, that has worsened over the last several days. He reports that his pain is 4 out of 10. The pain is constant. Nothing makes it better, palpation and movement make it worse. The patient is a diabetic. He does not check his blood sugars as he should. The patient denies any fevers or chills. He does report that yesterday, the tender area in the left groin "ruptured" and is now draining purulent material. His pain does not radiate. He does report mild swelling in the scrotum. He denies chest pain, shortness of breath, nausea, vomiting, mary na, hematochezia, hematemesis, fatigue, malaise, orthostasis, dizziness, headache. Past Medical History Endocrine Medical History: Reports: Diabetes Mellitus Type 2 Past Surgical History Past Surgical History: Reports: None Social History Smoking Status: Current Some Day Smoker Frequency of Alcohol Use: Rare Hx Recreational Drug Use: No Hx Prescription Drug Abuse: No Family History Family History: Reviewed & Not Pertinent, Hypertension Parental Family History Reviewed: Yes Children Family History Reviewed: Yes Sibling(s) Family History Reviewed.: Yes Medication/Allergy Home Medications: Metformin HCl 500 mg PO BID #60 tablet 04/22/16 Clindamycin HCl [Cleocin 150 mg Capsule] 450 mg PO TID 10 Days #90 10/22/19 Clindamycin HCl [Cleocin 150 mg Capsule] 450 mg PO TID 10 Days #90 capsule 10/22/19 Oxycodone HCl/Acetaminophen [Percocet 5-325 mg Tablet] 1 tab PO Q6HP PRN #15 tablet 10/22/19 Allergies/Adverse Reactions: No Known Allergies Allergy (Verified 04/22/16 17:12) Review of Systems Constitutional: ABSENT: anorexia, chills, fatigue, fever(s), headache(s), weakness Eyes: ABSENT: visual disturbances Ears: ABSENT: hearing changes Nose, Mouth, and Throat: ABSENT: sore throat Cardiovascular: ABSENT: chest pain Respiratory: ABSENT: cough Gastrointestinal: ABSENT: abdominal pain, bloating Genitourinary: ABSENT: dysuria Musculoskeletal: ABSENT: back pain Integumentary: PRESENT: erythema, lesions - Left groin abscess with purulent drainage Neurological: ABSENT: confusion, convulsions, dizziness Psychiatric: ABSENT: anxiety, depression Endocrine: ABSENT: cold intolerance, heat intolerance Hematologic/Lymphatic: ABSENT: easy bleeding, easy bruising Physical Exam Vital Signs: Temp Pulse Resp BP Pulse Ox 98.7 F 114 H 20 124/88 H 97 10/23/19 23:54 10/23/19 23:54 10/23/19 23:54 10/24/19 04:03 10/24/19 04:03 Intake & Output 10/22/19 10/23/19 10/24/19 06:59 06:59 06:59 Intake Total 1999 Balance 1999 Weight 111.13 kg General appearance: PRESENT: no acute distress, cooperative Head exam: PRESENT: atraumatic, normocephalic Eye exam: PRESENT: EOMI, PERRLA. ABSENT: scleral icterus Mouth exam: PRESENT: neck supple Neck exam: ABSENT: meningismus, tenderness, thyromegaly, tracheal deviation Respiratory exam: PRESENT: unlabored. ABSENT: tachypnea, wheezes Cardiovascular exam: ABSENT: tachycardia Vascular exam: PRESENT: normal capillary refill GI/Abdominal exam: PRESENT: soft. ABSENT: distended, firm, guarding, tenderness Rectal exam: PRESENT: deferred Gentrourinary exam: PRESENT: scrotal swelling - mild swelling without tenderness, other - 2cm left groin abscess with purulent drainage Extremities exam: ABSENT: clubbing Neurological exam: PRESENT: alert, awake, oriented to person, oriented to place, oriented to time, oriented to situation, CN II-XII grossly intact Psychiatric exam: ABSENT: agitated, anxious, depressed Focused psych exam: ABSENT: delusional Skin exam: PRESENT: erythema, other - See exam. ABSENT: cyanosis Results Laboratory Results: 10/24/19 00:55 10/24/19 00:55 10/24/19 10/24/19 00:55 00:55 WBC 7.9 RBC 5.55 Hgb 16.1 Hct 46.8 MCV 84 MCH 29.1 MCHC 34.5 RDW 14.1 H Plt Count 205 Seg Neutrophils % 66.0 Sodium 133.4 L Potassium 4.2 Chloride 104 Carbon Dioxide 24 Anion Gap 5 BUN 10 Creatinine 0.90 Est GFR ( Amer) > 60 Glucose 307 H Calcium 9.2 Total Bilirubin 0.7 AST 25 Alkaline Phosphatase 88 Total Protein 7.0 Albumin 3.7 Impressions: Pelvis CT 10/24/19 00:30 IMPRESSION: Left scrotal cellulitis with suspected small abscess of the left perineum extending to the left hemiscrotum. TECHNICAL DOCUMENTATION: Quality ID # 436: Final reports with documentation of one or more dose reduction techniques (e.g., Automated exposure control, adjustment of the mA and/or kV according to patient size, use of iterative reconstruction technique) copyright 2011 [employer]- All Rights Reserved Assessment & Plan - Diagnosis (1) Abscess Is this a current diagnosis for this admission?: Yes - Plan Summary Plan Summary: 44-year-old diabetic male with a left groin abscess. I recommended incision and drainage at bedside today. The patient is in agreement with the treatment plan. Plan for I&D today at bedside. Discharge after I&D, per ED physician. Continue with previously prescribed antibiotics. Monitor blood glucose aggressively. Keep area clean. Damp to dry dressing changes twice daily.
[2019-10-24 05:28] VITALS: BP 147/94
--- NOTE | 2019-10-24 05:28 | Operative Report ---
Nonrecallable Operative Report DATE OF SURGERY: 10/24/19 PREOPERATIVE DIAGNOSIS: Left groin abscess POSTOPERATIVE DIAGNOSIS: Left groin abscess OPERATION: Incision and drainage of left groin abscess SURGEON: LEVON DWYER ANESTHESIA: Local TISSUE REMOVED OR ALTERED: None COMPLICATIONS: None apparent. ESTIMATED BLOOD LOSS: Minimal PROCEDURE: Drains/implants: 4 x 4 gauze. Procedure in detail: After informed consent was obtained, the patient was laid in the supine position in the emergency department. The left groin was prepped and draped in a normal sterile fashion. 1% lidocaine with epinephrine was infiltrated into the skin surrounding the left groin abscess. An 11 blade scalpel was used to incise the abscess. A 2 cm left groin abscess was identified. A moderate amount of purulent material was cleaned and irrigated from the cavity. The cavity was then packed with a 4 x 4 gauze. A dressing was placed, and the procedure was concluded. All sponge, instrument, and needle counts were correct. Condition: Stable.
== END 2019-10-24 05:29 | disposition home or self-care (01) ==
LOC: ER 23:49
PROC: 0H97XZZ Drainage of Abdomen Skin, External Approach (ICD-10-PCS; principal; 2019-10-23)
DX: L02.214 Cutaneous abscess of groin (principal); L03.314 Cellulitis of groin; Z79.4 Long term (current) use of insulin; F17.210 Nicotine dependence, cigarettes, uncomplicated; E11.9 Type 2 diabetes mellitus without complications; I10 Essential (primary) hypertension
CPT/HCPCS: 10060; 96376; 99284; 96361; 96374; 96375; 36415; 85025; 80053; 72193; J3490; J1170; J2405; J7030